=== PATIENT | female | born 1945 | race Caucasian/White ===

== ENCOUNTER 2017-03-26 15:19 | Emergency (ER) | payer BC, OTHER ==
[2017-03-26 15:28] VITALS: BP 168/97; PULSE 81; TEMP 98.6; BMI 28.3
--- NOTE | 2017-03-26 16:13 | PDOC ---
History of Present Illness - General History Source: Patient Exam Limitations: No Limitations - History of Present Illness Initial Comments: 03/26/17 16:14 The patient is a 72 year old female, with a significant past medical history of hyperlipidemia, glaucoma, who presents to the emergency department with, approx. 1 weeks of dizziness. The patient reports the dizziness as a spinning sensation and states the dizziness is worse while lying down. The patient reports the dizziness was the worse its been today so she decided to go to an urgent care for evaluation. The patient reports that the doctor at the urgent care advised the patient to come to the ED for further evaluation. The patient also reports she received a echocardiogram and stress test last month and states all results were normal. She denies recent fevers, chills, or headache. She denies recent nausea, vomit, diarrhea or constipation. She denies recent dysuria, frequency, urgency or hematuria. She denies recent chest pain or shortness of breath. Allergies: NKA Past surgical history: None reported. Social history: Nonsmoker. Denies EtOH use and recreational drug use. Primary Care Physician: Dr. Jenny Chavarria <Brian Johnston - Last Filed: 03/26/17 16:14> - History of Present Illness Initial Comments: 03/26/17 17:08 Physical exam: Alert and oriented well-developed well-nourished no acute distress cheerful and cooperative Afebrile, vital signs stable except for mildly elevated blood pressure Head atraumatic. PERRLA 4 mm, fundi benign with sharp disc margins and good central venous pulsations. No AV nicking. No hemorrhages or exudates ENT clear Neck supple without bruit mass or nodes Lungs clear to P&A CV regular without murmur rub or gallop Abdomen benign Neurological C2 to 12 intact. Strength full and symmetric. No focal sensory or motor deficits. Cerebellum intact. Gait stable and unimpaired Extremities no CCE Skin clear, no rash, adequate turgor and wet mucous membranes Impression: Mild positional vertigo for about 1 week, without any other associated neurological or systemic symptoms. 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 ENT referral. Return to ER if symptoms worsen or additional symptoms develop. Fully ambulatory, no impairment of gait upon discharge to follow-up as recommended <Tomas Paredes - Last Filed: 03/26/17 17:11> - General Chief Complaint: Lightheaded Stated Complaint: DIZZINESS Time Seen by Provider: 03/26/17 15:33 Past History <Brian Johnston - Last Filed: 03/26/17 16:14> - Past Medical History COPD: No Hypercholesterolemia: Yes - Suicide/Smoking/Psychosocial Hx Smoking History: Never smoked Have you smoked in the past 12 months: No Hx Alcohol Use: No Drug/Substance Use Hx: No Substance Use Type: None <Tomas Paredes - Last Filed: 03/26/17 17:11> - Past Medical History Allergies/Adverse Reactions: Allergies Allergy/AdvReac Type Severity Reaction Status Date / Time No Known Allergies Allergy Verified 03/26/17 15:20 Home Medications: Ambulatory Orders Meclizine HCl [Antivert -] 12.5 - 25 mg PO TID PRN #20 tablet 03/26/17 Pravastatin Sodium 20 mg PO HS 03/26/17 Review of Systems - Review of Systems Comments:: 03/26/17 16:21 CONSTITUTIONAL: Absent: fever, chills, diaphoresis, generalized weakness, malaise, loss of appetite HEENT: Absent: rhinorrhea, nasal congestion, throat pain, throat swelling, difficulty swallowing, mouth swelling, ear pain, eye pain, visual Changes CARDIOVASCULAR: Absent: chest pain, syncope, palpitations, irregular heart rate, lightheadedness , peripheral edema RESPIRATORY: Absent: cough, shortness of breath, dyspnea with exertion, orthopnea, wheezing, stridor, hemoptysis GASTROINTESTINAL: Absent: abdominal pain, abdominal distension, nausea, vomiting, diarrhea, constipation, melena, hematochezia GENITOURINARY: Absent: dysuria, frequency, urgency, hesitancy, hematuria, flank pain, genital pain MUSCULOSKELETAL: Absent: myalgia, arthralgia, joint swelling SKIN: Absent: rash, itching, pallor HEMATOLOGIC/IMMUNOLOGIC: Absent: easy bleeding, easy bruising, lymphadenopathy, frequent infections ENDOCRINE: Absent: unexplained weight gain, unexplained weight loss, heat intolerance, cold intolerance NEUROLOGIC: Present: +dizziness Absent: headache, focal weakness or paresthesias, unsteady gait, seizure, mental status changes, bladder or bowel incontinence PSYCHIATRIC: Absent: anxiety, depression, suicidal or homicidal ideation, hallucinations. <Brian Johnston - Last Filed: 03/26/17 16:14> *Physical Exam - Vital Signs Last Vital Signs Temp Pulse Resp BP Pulse Ox 98.6 F 81 18 168/97 96 03/26/17 15:20 03/26/17 15:20 03/26/17 15:20 03/26/17 15:20 03/26/17 15:20 <Brian Johnston - Last Filed: 03/26/17 16:14> - Vital Signs Last Vital Signs Temp Pulse Resp BP Pulse Ox 98.6 F 81 18 168/97 96 03/26/17 15:20 03/26/17 15:20 03/26/17 15:20 03/26/17 15:20 03/26/17 15:20 <Tomas Paredes - Last Filed: 03/26/17 17:11> *DC/Admit/Observation/Transfer - Attestations Scribe Attestion: 03/26/17 16:22 Documentation prepared by Brian Johnston, acting as electromedical service engineer for Tomas Paredes MD. <Brian Johnston - Last Filed: 03/26/17 16:14> - Discharge Dispostion Admit: No <Tomas Paredes - Last Filed: 03/26/17 17:11> Diagnosis at time of Disposition: Labyrinthitis Qualifiers: Laterality: unspecified laterality Qualified Code(s): H83.09 - Labyrinthitis, unspecified ear - Discharge Dispostion Disposition: HOME Condition at time of disposition: Stable - Prescriptions Prescriptions: Meclizine HCl [Antivert -] 12.5 - 25 mg PO TID PRN #20 tablet PRN Reason: Vertigo - Referrals Referrals: Kemar Anaya MD [Staff Physician] - 1 week - Patient Instructions Printed Discharge Instructions: DI for Labyrinthitis Additional Instructions: Return to the ER if symptoms worsen or any additional symptoms develop. Otherwise follow-up with your primary physician or ENT specialist as directed - Post Discharge Activity
== END 2017-03-26 16:24 | disposition home or self-care (01) ==
LOC: FER 15:19
DX: H83.09 Labyrinthitis, unspecified ear (principal); E78.5 Hyperlipidemia, unspecified; H40.9 Unspecified glaucoma
CPT/HCPCS: 99283-25